=== PATIENT | male | born 1975 | race Caucasian/White ===

== ENCOUNTER 2025-06-26 11:43 | Outpatient (CLI) | payer OTHER, SELFPAY ==
[2025-06-26 12:02] LABS: Hematocrit 45.3 % (40.0-54.0); Hemoglobin 14.6 g/dL (14.0-18.0); Immature Granulocyte Percent A 0.4 % (0.0-0.0); Lymphocytes Absolute Auto 1.58 K/mm3 (1.10-4.50); Mean Corpuscular HGB Conc 32.2 g/dL (32-36); Mean Corpuscular Hemoglobin 26.9 pg (27.0-31.0); Mean Corpuscular Volume 83.6 fL (78.0-102.0); Nucleated Red Blood Cells Absolute Auto 0.00 K/mm3 (0.00-0.00); Nucleated Red Blood Cells Perc 0.0 % (0-0.0); Platelet Count Result 166 K/mm3 (150-420); Red Blood Count 5.42 M/mm3 (4.70-6.10); White Blood Count 5.6 K/mm3 (4.8-10.8)
[2025-06-26 12:23] LABS: Alanine Aminotransferase 48 U/L (6-50); Albumin Level 4.7 g/dL (3.5-5.1); Alkaline Phosphatase 63 U/L (38-126); Anion Gap 9 mmol/L (4-12); Aspartate Amino Transferase 42 U/L (17-59); Bilirubin,Total 0.7 mg/dL (0.2-1.3); Blood Urea Nitrogen 15 mg/dL (9-20); Calcium 9.5 mg/dL (8.4-10.2); Carbon Dioxide 27 mmol/L (22-30); Chloride 109 mmol/L (98-107); Cholesterol 322 mg/dL (0-200); Estimated Glomerular Filt Rate > 60; Glucose 105 mg/dL (65-110); HDL Direct 50 mg/dL; Osmolality Calculated 300 mOsm/kg (285-295); Potassium 4.4 mmol/L (3.4-5.0); Sodium 145 mmol/L (137-145); Total Protein 7.6 g/dL (6.3-8.2); Triglycerides 435 mg/dL (<150)
[2025-06-26 12:26] LABS: Hemoglobin A1C 5.5 % (<5.7)
[2025-06-26 12:53] LABS: Thyroid Stimulating Hormone Reflex 1.390 uIU/mL (0.465-4.68)
== END 2025-06-26 11:44 | disposition home or self-care (01) ==
PROVIDERS: PCP Family Medicine; Visit Provider Family Medicine
DX: E03.9 Hypothyroidism, unspecified (principal); E78.5 Hyperlipidemia, unspecified; E11.9 Type 2 diabetes mellitus without complications
CPT/HCPCS: 36415; 80053; 80061; 83036; 84443; 85025